=== PATIENT | female | born 1995 | race Caucasian/White ===

== ENCOUNTER 2019-11-03 08:49 | Emergency (ER) | payer OTHER ==
[~2019-11-03] VITALS: Ht 160 cm; Wt 61.2 kg
--- NOTE | 2019-11-03 08:50 | NUR ---
ER PT CAME IN TO ER FROM HOME D/T COMPLAINTS OF ABD PAIN.PER PT, PAIN STARTED EARLY THIS AM. PT STATES THAT SHE DOES NOT HAVE ANY SIGNIFICANT PAST MEDICAL HX EXCEPT FOR BEING DIAGNOSED WITH CHRONIC PANCREATITIS FROM HER PREVIOUS HOSPITALIZATION ABOUT A MONTH AGO. PT ALSO STATES THAT SHE PAIN IS ABOUT 8/10 WHICH SHE DESCRIBES A "SHARP BURNING PAIN." PER PT, SHE TAKES MEDS FOR HER BIPOLAR, ANXIETY, SCHIZOAFFECTIVE D/O PTSD AND DEPRESSION. VS CHECKED. STABLE AT THIS TIME.
[2019-11-03] MEDS ORDERED: FAMOTIDINE/PF INJ 20 MG/2 ML VIAL IV ONE ×2 (09:30→09:51)
[2019-11-03] MEDS ORDERED: IV NS 0.9% 1,000 ML BAG IV ONE (09:30)
[2019-11-03] MEDS ORDERED: MAG HYDROX/AL HYDROX/SIMETH 30 ML UDC PO ONE (09:30)
[2019-11-03] MEDS ORDERED: ONDANSETRON HCL/PF 4 MG/2 ML VIAL IVP ONE (09:30)
[2019-11-03] MEDS ORDERED: LIDOCAINE VISCOUS 2% UD 15 ML UDC MM ONE (09:30)
[2019-11-03] MEDS ORDERED: ONDANSETRON HCL/PF 4 MG/2 ML VIAL ONE (09:51)
[2019-11-03] MEDS ORDERED: LIDOCAINE VISCOUS 2% UD 15 ML UDC ONE (09:51)
[2019-11-03] MEDS ORDERED: MAG HYDROX/AL HYDROX/SIMETH 30 ML UDC ONE (09:51)
[2019-11-03 09:57] LABS: BASOPHILS % (AUTO) 0.7 % (0.0-2.0); EOSINOPHILS % (AUTO) 1.6 % (0.0-6.0); HEMATOCRIT 40 % (33-45); HEMOGLOBIN 12.8 g/dL (11.5-14.8); LYMPHOCYTES # (AUTO) 1.4 /CMM (0.8-4.8); LYMPHOCYTES % (AUTO) 26.3 % (20.0-44.0); MEAN CORPUSCULAR HGB CONC 32 g/dl (31.0-36.0); MEAN CORPUSCULAR VOLUME 84 fL (82-100); MONOCYTES # (AUTO) 0.3 /CMM (0.1-1.30); MONOCYTES % (AUTO) 5.8 % (2.0-12.0); NEUTROPHILS # (AUTO) 3.5 /CMM (1.8-8.9); NEUTROPHILS % (AUTO) 65.6 % (43.0-81.0); PLATELET COUNT (AUTO) 269 /CMM (150-450); RED BLOOD CELL COUNT(AUTO) 4.73 MIL/uL (4.0-5.2); WHITE BLOOD COUNT (AUTO) 5.3 K/uL (4.3-11.0)
[2019-11-03 10:00] LABS: APPEARANCE,URINE Clear (CLEAR); BILIRUBIN,URINE Negative (NEGATIVE); COLOR,URINE Yellow (YELLOW); KETONES,URINE Negative (NEGATIVE); LEUKOCYTE ESTERASE ,URINE Negative (NEGATIVE); NITRITE, URINE Negative (NEGATIVE); PH,URINE 5.5 (5.0-8.0); PROTEIN,URINE Negative (NEGATIVE); UGLUCOSE Negative (NEGATIVE); UROBILINOGEN,URINE 0.2 EU/dL (0.2)
--- NOTE | 2019-11-03 10:00 | NUR ---
IV ACCESS/LABS IV ACCESS STARTED ON R AC G20. INTACT AND PATENT AND FLUSHING WELL. BLOOD DRAW DONE WELL URINE WAS COLLECTED.
[2019-11-03 10:01] LABS: CALCIUM, SERUM 9.2 mg/dL (8.5-10.1); CREATININE 1.1 mg/dL (0.6-1.3); POTASSIUM 3.9 mmol/L (3.5-5.1)
[2019-11-03 10:01] LABS: BLOOD, URINE Negative Ery/uL (NEGATIVE)
[2019-11-03 10:13] LABS: ALBUMIN 4.2 g/dL (3.4-5.0); BILIRUBIN,DIRECT 0.1 mg/dL (0.0-0.2); BILIRUBIN,TOTAL 0.6 mg/dL (0.2-1.0); TOTAL PROTEIN, SERUM 7.8 g/dL (6.4-8.2)
--- NOTE | 2019-11-03 10:15 | NUR ---
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
--- NOTE | 2019-11-03 11:25 | NUR ---
DISCHARGE Pt was cleared for discharge by Dr. Katz. Written and verbal after care instructions given. Patient verbalizes understanding of instruction. instricted pt to seek pmedical attentions if abd pain continues to persis or if she feels nausea/vomiting, sob, chest pain etc. pt undesrtood. IV removed on R AC. Catheter intact and site benign. Pressure and 4x4 applied to site. No bleeding noted. pt left the ER in stable condition and was picked up bu transitional care facility staff. pt as provided with d/c instrutions as well as copies of labs and imagings.
[2019-11-03 11:35] VITALS: BP 137/72
== END 2019-11-03 11:36 | disposition home or self-care (01) ==
LOC: ER 08:58
DX: R10.13 Epigastric pain (principal); R11.2 Nausea with vomiting, unspecified; N93.8 Other specified abnormal uterine and vaginal bleeding; I10 Essential (primary) hypertension
CPT/HCPCS: 36415; 76705; 76856; 80048; 80076; 81001; 83690; 84702; 84703; 85025; 85730; 86850; 96361; 96374; 96375; 99285; J2405; J3490; J7040 ×2; 81000-TC